=== PATIENT | male | born 1935 | race Native Hawaiian/Other Pacific Islander ===

== ENCOUNTER 2021-01-01 14:17 | Outpatient (CLI) | payer OTHER, MEDICARE | END 2021-01-01 21:51 | disposition home or self-care (01) | LOC: LAB 14:17 | PROVIDERS: ATTEND Nurse Practitioner Family | DX: N39.0 Urinary tract infection, site not specified (principal) | CPT/HCPCS: 81000; 87077; 87086; 87088; 87186 ==